=== PATIENT | male | born 1995 | race African-American/Black ===

== ENCOUNTER 2019-01-16 02:14 | Emergency (ER) | payer BC ==
[~2019-01-16] VITALS: Ht 193 cm; Wt 99.8 kg
[2019-01-16] MEDS ORDERED: BACTRIM DS TAB1 EACH PO (02:54)
[2019-01-16 03:09] VITALS: BP 110/56
== END 2019-01-16 03:10 | disposition home or self-care (01) ==
LOC: ER 02:14
DX: L02.01 Cutaneous abscess of face (principal)

== ENCOUNTER 2019-05-08 06:49 | Emergency (ER) | payer BC ==
[~2019-05-08] VITALS: Ht 193 cm; Wt 102.1 kg
[~2019-05-08 06:49] MED LIST: BACTRIM DS TAB1 EACH PO
[2019-05-08] MEDS ORDERED: AUGMENTIN 875-1 EACH PO (08:26)
[2019-05-08 08:32] VITALS: BP 135/72
== END 2019-05-08 08:32 | disposition home or self-care (01) ==
LOC: ER 06:49
DX: K04.7 Periapical abscess without sinus (principal); J45.909 Unspecified asthma, uncomplicated

== ENCOUNTER 2020-10-12 15:44 | Emergency (ER) | payer OTHER ==
[~2020-10-12] VITALS: Ht 193 cm; Wt 111.1 kg
[~2020-10-12 15:44] MED LIST changes: +AUGMENTIN 875-1 EACH PO
[2020-10-12 15:46] VITALS: BP 137/66
[2020-10-12 16:24] LABS: ABSOLUTE NEUTROPHILS 2.9 thou/uL (1.4-8.2); HEMATOCRIT 42.5 % (42.0-52.0); HEMOGLOBIN 14.4 gm/dL (14.0-18.0); LYMPHOCYTES 37.4 % (24.0-44.0); MCH 31.2 pg (26.0-34.0); MCV 91.9 fL (80.0-100.0); MONOCYTES 7.7 % (1.0-8.0); PLATELET COUNT 225 thou/uL (150-400); POLYS 46.9 % (36.0-66.0); RBC 4.62 mil/uL (4.50-6.00); RDW 13.7 % (10.5-14.5); WBC 6.2 thou/uL (4.0-11.0)
[2020-10-12 16:27] LABS: CALCIUM 9.6 mg/dL (8.5-10.1); CREATININE 1.3 mg/dL (0.7-1.3)
== END 2020-10-12 16:39 | disposition home or self-care (01) ==
LOC: ER 15:44
PROVIDERS: Nurse Practitioner
DX: R53.83 Other fatigue (principal); R42 Dizziness and giddiness; R04.0 Epistaxis; J45.909 Unspecified asthma, uncomplicated; Z79.2 Long term (current) use of antibiotics

== ENCOUNTER → 2020-11-16 | Emergency (ER) | payer OTHER ==
[~2020-11-16] VITALS: Ht 193 cm; Wt 113.4 kg
[~2020-11-16] MED LIST changes: +CLEOCIN HCL300 MG PO; +NORCO 10-325 T1 EACH PO
[2020-11-16 10:31] VITALS: BP 134/87
== END ==
LOC: ER 09:40
DX: K04.7 Periapical abscess without sinus (principal); J45.909 Unspecified asthma, uncomplicated